=== PATIENT | male | born 2000 | race Caucasian/White ===

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

== ENCOUNTER 2018-12-24 11:04 | Emergency (ER) | payer MEDICAID ==
[2018-12-24 11:16] VITALS: BP 141/88
--- NOTE | 2018-12-24 12:14 | ED Physician Documentation ---
PD HPI BACK INJURY - Stated complaint Stated Complaint: SLIP AND FALL/LOWER BACK PX - History obtained from History obtained from: Patient - History of Present Illness Type of injury: Fall Timing - onset: Yesterday Timing - details: Abrupt onset Quality: Pain (lumbosacral area.), Aching. No: Tearing, Throbbing Worsened by: Moving (bending and twisting. he slipped on ice yesterday and landed firmly on lumbosacral area. N), Palpating Associated symptoms: Other (intermittent light headed feeling for month or more, with feeling well hydrated and no vomiting nor diarrhea. Denies headache.). No: Fever, Weakness, Numbness Contributing factors: No: Work related Similar symptoms before: No diagnosis, Has not had sx before Recently seen: Not recently seen Review of Systems Constitutional: denies: Fever Ears: reports: Reviewed and negative Nose: denies: Rhinorrhea / runny nose, Congestion Throat: denies: Sore throat Respiratory: denies: Cough GI: denies: Nausea, Vomiting, Diarrhea Neurologic: denies: Focal weakness, Near syncope PD PAST MEDICAL HISTORY - Past Medical History Cardiovascular: None Respiratory: None Neuro: Other (congenital hydrocephalus, with prior shunts. Most recent surgical shunt/intervention being over 5-6 yearsa go.) Endocrine/Autoimmune: None - Past Surgical History Past Surgical History: Yes Neuro: DIRECT SERVICE PROFESSIONAL shunt - Present Medications Home Medications: Ambulatory Orders Medication Instructions Recorded Confirmed Naproxen 500 mg PO BID #20 tablet 12/24/18 Tramadol HCl 50 mg PO Q6H PRN #15 tablet 12/24/18 - Allergies Allergies/Adverse Reactions: Allergies Allergy/AdvReac Type Severity Reaction Status Date / Time No Known Drug Allergies Allergy Verified 12/24/18 11:16 - Social History Does the pt smoke?: No Smoking Status: Never smoker Does the pt drink ETOH?: No Does the pt have substance abuse?: No - Immunizations Immunizations are current?: Yes PD ED PE NORMAL - Vitals Vital signs reviewed: Yes - General General: Alert and oriented X 3, No acute distress, Well developed/nourished - HEENT HEENT: Ears normal, Pharynx benign - Neck Neck: Supple, no meningeal sign, No adenopathy - Cardiac Cardiac: RRR, No murmur - Respiratory Respiratory: Clear bilaterally - Abdomen Abdomen: Soft, Non tender - Derm Derm: Normal color, Warm and dry Results - Vitals Vitals: Vital Signs - 24 hr 12/24/18 11:14 Temperature 36.7 C Heart Rate 70 Respiratory 18 Rate Blood Pressure 141/88 H O2 Saturation 97 Oxygen O2 Source Room air - Rads (name of study) lumbar xray Radiology: Prelim report reviewed (no fractures. good alignment.), EMP read contemporaneously head CT Radiology: Prelim report reviewed (no acute process seen.) PD MEDICAL DECISION MAKING - ED course Complexity details: considered differential, d/w patient Departure - Departure Disposition: 01 Home, Self Care Clinical Impression: Contusion of lower back and pelvis, initial encounter, Light-headed feeling Fall due to ice or snow Qualifiers: Encounter type: initial encounter Qualified Code(s): W00.9XXA - Unspecified fall due to ice and snow, initial encounter Condition: Stable Record reviewed to determine appropriate education?: Yes Instructions: ED Contusion Sacrum Coccyx Follow-Up: Itzel Weaver ARNP [Primary Care Provider] - Prescriptions: Naproxen 500 mg PO BID #20 tablet Tramadol HCl 50 mg PO Q6H PRN #15 tablet PRN Reason: Pain Comments: Your x-rays of the lower back and tailbone area did not show any obvious fractures. Presume bruised and sprained and will be sore for several days or so. You can use anti-inflammatories such as naproxen twice daily. Add pain m edicine like Tylenol or tramadol to it if needed. Your head CT showed obvious congenital abnormalities in the prior shunts but no signs of current enlarged ventricles or other acute abnormalities. Follow-up with your primary care if not improved over the next several days to week or so. Discharge Date/Time: 12/24/18 14:59
[2018-12-24] MEDS ORDERED: IBUPROFEN 600 MG TABLET PO STA (12:33)
[2018-12-24] MEDS ORDERED: METHOCARBAMOL 500 MG TABLET PO STA (12:33)
[2018-12-24] MEDS ORDERED: ACETAMINOPHEN 325 MG TABLET PO STA (12:33)
--- NOTE | 2018-12-24 14:15 | XRAY Report ---
Reason: fall on ice; lumbar/coccygeal pain Procedure Date: 12/24/2018 Accession Number: [id number] / [id number] Procedure: XR - Lumbar Spine 2 View CPT Code: FULL RESULT: EXAM: LUMBOSACRAL SPINE RADIOGRAPHY EXAM DATE: 12/24/2018 01:30 PM. CLINICAL HISTORY: Fall on ice; lumbar/coccygeal pain. COMPARISONS: None. TECHNIQUE: 3 views. FINDINGS: Alignment: Normal. No spondylolisthesis or scoliosis. Bones: Five [id number] lumbar vertebral bodies are present. No fractures or bone lesions. Disks: Normal. Disk heights are maintained. Facets: No degenerative changes. Sacroiliac Joints: Unremarkable. Soft Tissues: No bowel obstruction. Catheters project over the mid right abdomen and upper pelvis. IMPRESSION: 1. No acute lumbar spine abnormalities are identified. [facility]
--- NOTE | 2018-12-24 14:38 | CT Report ---
Reason: lightheaded, recent fall Procedure Date: 12/24/2018 Accession Number: [id number] / [id number] Procedure: CT - Head W/O CPT Code: FULL RESULT: EXAM: CT HEAD EXAM DATE: 12/24/2018 02:26 PM. CLINICAL HISTORY: Lightheaded, recent fall. COMPARISON: None. TECHNIQUE: Multiaxial CT images were obtained from the foramen magnum to the vertex. Reformats: Sagittal and coronal. IV contrast: None. In accordance with CT protocol optimization, one or more of the following dose reduction techniques were utilized for this exam: automated exposure control, adjustment of mA and/or KV based on patient size, or use of iterative reconstructive technique. FINDINGS: Parenchyma: There are findings of cerebral dysplasia with absence of midline falx, and presumed developmental deformity of corpus callosum and basal ganglia. There is a posterior right-sided ventriculostomy catheter which traverses through the location of the posterior right lateral ventricle. No intraparenchymal acute hemorrhage. Extraaxial Spaces: There is a subdural drainage catheter in the posterior left subdural space. There are asymmetric posterior left dural calcifications. Ventricles: The frontal horns of the ventricles appear slitlike and decompressed. No ventriculomegaly. There is dysplasia of the ventricles. Sinuses and Orbits: Imaged paranasal sinuses, orbits, and mastoids show no significant abnormality. Bones: No acute fracture Other: None. IMPRESSION: 1. Negative for intracranial acute hemorrhage. No definite acute process by CT. 2. 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 3. Posterior right ventriculostomy catheter. Posterior left subdural drainage catheter. [facility]
== END 2018-12-24 14:59 | disposition home or self-care (01) ==
LOC: ED 11:04
DX: S30.0XXA Contusion of lower back and pelvis, initial encounter (principal); W00.0XXA Fall on same level due to ice and snow, initial encounter; R42 Dizziness and giddiness; Q03.9 Congenital hydrocephalus, unspecified
CPT/HCPCS: 70450; 72100; 99283; A9270

== ENCOUNTER 2019-09-01 08:00 | Outpatient (CLI) | payer MEDICAID | END 2019-09-01 23:59 | disposition home or self-care (01) | LOC: LAB.N 08:00 | PROVIDERS: ATTEND Nurse Practitioner Psychiatric/Mental Health | DX: Z53.9 Procedure and treatment not carried out, unspecified reason (principal) | CPT/HCPCS: 36415; 80050; 82306; 82607 ==

== ENCOUNTER 2019-09-01 08:00 | Outpatient (CLI) | payer MEDICAID ==
[2019-09-01 18:47] LABS: BASOPHILS # (AUTO) 0.1 10^3/uL (0.0-0.1); BASOPHILS % (AUTO) 0.7 %; EOSINOPHILS # (AUTO) 0.2 10^3/uL (0.0-0.7); EOSINOPHILS % (AUTO) 2.4 %; LYMPHOCYTES # (AUTO) 3.2 10^3/uL (1.5-3.5); LYMPHOCYTES % (AUTO) 31.3 %; MEAN CORPUSCULAR HEMOGLOBIN 28.7 pg (27.0-31.0); MEAN CORPUSCULAR HGB CONC 32.1 g/dL (32.0-36.0); MEAN CORPUSCULAR VOLUME 89.7 fL (80.0-94.0); MONOCYTES % (AUTO) 9.4 %; NEUTROPHILS # (AUTO) 5.7 10^3/uL (1.5-6.6); NEUTROPHILS % (AUTO) 55.8 %; PLT - PLATELET COUNT 312 10^3/uL (130-450); RED BLOOD COUNT 5.22 10^6/uL (4.70-6.10); RED CELL DISTRIBUTION WIDTH 12.5 % (12.0-15.0); WHITE BLOOD COUNT 10.1 x10^3/uL (4.8-10.8)
[2019-09-01 18:56] LABS: ALBUMIN 4.4 g/dL (3.2-5.5); ALBUMIN/GLOBULIN RATIO 1.2 (1.0-2.2); BILIRUBIN,TOTAL 0.5 mg/dL (0.2-1.0); CALCIUM 9.2 mg/dL (8.5-10.3); CREATININE 0.9 mg/dL (0.6-1.2); TOTAL PROTEIN 8.2 g/dL (6.7-8.2)
== END 2019-09-01 23:59 | disposition home or self-care (01) ==
LOC: LAB.WCP 08:00
PROVIDERS: ATTEND Nurse Practitioner Psychiatric/Mental Health
DX: F90.2 Attention-deficit hyperactivity disorder, combined type (principal)
CPT/HCPCS: 36415; 80050; 82306; 82607

== ENCOUNTER 2019-09-11 10:11 | Outpatient (CLI) | payer MEDICAID ==
[2019-09-11 11:53] VITALS: BP 110/72
--- NOTE | 2019-09-11 11:53 | SLEEP CARE CONSULTATION ---
Information from patient questionnaire entered by Shawanda Enrique. I have reviewed and concur with the information entered by Shawanda Enrique. This document represents the service I personally performed and the decisions made by me, Bianca Grey RN, MSN, [employer] MANAGER. History of Present Illness Reason for Visit: New patient Chief Complaint: reports: Insomnia, Unrefreshed sleep, Snoring, Excessive daytime sleepiness, Observed pauses in breathing, Fatigue, Frequent awakenings at night, Other Duration of Symptoms: as long as I can remember Usual bedtime: try to sleep at around 8-10pm Time it takes to fall asleep: 3-5 hours - ear noise that sounds like tinnitus can interfere to sleep. Snores at night: Yes Observed to quit breathing while asleep: Yes (occasionally) Sleeps alone due to snoring: No Number of times waking at night: 2 Reasons for waking at night: reports: Gasping for air, Other (rapid heart rate) Toss, Turn, or Twitch while sleeping: Yes Recalls having dreams: Yes (sometimes) Usually gets out of bed at: 7-9am Feels refreshed in the morning: No Morning headache: Yes (sometimes when less sleep - resolves in a couple of hours) Sleepy or fatigued during the day: Yes Ever fallen asleep while driving: No Takes day naps: No Dreams during day naps: No (no naps) Prior sleep studies: No - Parasomnia Symptoms Ever been unable to move upon waking from sleep: No Walks in sleep: No Talks in sleep: Yes (rare) Ever acted out dreams in sleep: No Ever felt weak in the knees when startled or emotional: No Bothered by creepy, crawly, restless sensations in legs: No Problems with memory or concentration: Yes Subjective Initial [place] Sleepiness Scale score: 8 Past Medical History Past Medical History: reports: Claustrophobia, Anxiety, Depression, Mood disor jay, Attention deficit (medications pending determined by insurance coverage). 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 Patient is Single and lives in [place]. Have you smoked in the past 12 months: Yes Cigarettes per day (20/pack): 1 (more than 1 pack a year) Years of smokin Quit date: last March 2019 Smoking Pack Years: 0 Alcohol use: No Caffeine use: Yes Caffeine amount and frequency: 1-2 cups a week Family History Family history of sleep disordered breathing: No Allergies and Home Medications Known drug allergies: No Home medication list reviewed: Yes Allergy and home medication list: multiple vitamins vitamin D 2000 units - waiting for stronger prescription Naproxen 500mg bid prn Review of Systems Weight gain over past 5 years: 100 Weight loss over past 5 years: 20 Cardiovascular: reports: palpitations (2 times a month when waking from sleep), have to sleep sitting up (proped up with pillows to decrease snoring) Neurological: reports: headaches, disorientation (seen by neurologist for zoning out and grogginess when awakes ), other (shunts for hydrocehalus - in process of further evaluation) Psychiatric: reports: Attention Deficit Hyperactivity (evaluated and medications pending insurance ), anxiety, depression (denies thoughts of hurting self or others ), mood disorder (not diagnosed but feels rebolledo at times), claustrophobia (in crowds) Ear/Nose/Throat: reports: nasal congestion (intermittent ), sinus problems (intermittent), dry mouth/throat (when he awakens - uses humidifier ), tonsillectomy Endocrine: reports: sluggishness, too hot or cold, increased appetite (binge eating - under evaluation) Musculoskeletal: reports: back pain (chronic - under evaluation ) Physical Exam Blood Pressure: 110/72 Heart Rate: 59 O2 Saturation: 98 Height: 5 ft 9 in Weight: 283 lb Body Mass Index: 41.8 BMI Classification: Obesity Class 3 Neck circumference: 17.5 HEENT: No craniofacial malformation Nostrils: patent to airflow Turbinates: swollen Septum: midline Mouth and throat: narrow oropharynx Soft palate: long Hard palate: normal Uvula: normal Uvula visualization: 0% Mallampati Class IV Tongue: normal in size Tonsils: absent bilaterally Chin and jaw: Overjet (slight - had braces to correct as child) Neck: normal w/o lymphadenopathy or thyromegaly Heart: regular rate and rhythm Lungs: clear bilaterally Abdomen: soft, other: (large) Extremities: no edema or clubbing Impression and Plan 1. Suspected Obstructive Sleep Apnea-Hypopnea Syndrome, as suggested by a history of loud and irregular snoring, observed cessation of breath while asleep, gasping or choking in sleep, morning headache, frequent awakening during the night, unrefreshed sleep, cognitive impairment, fatigue and excessive daytime sleepiness. Narrow oropharynx and obesity are common predisposing factors for obstructive sleep apnea-hypopnea syndrome. He also has awakened to gasping and rapid heart beat which could be a symptoms of sleep apnea. In addition, some symptoms of depression / attention deficit can overlap with sleep apnea. I recommend proceeding to polysomnography to confirm the diagnosis and to assess severity. If the patient has significant sleep disordered breathing, a manual CPAP titration study will also be performed to find the optimal treatment pressure. I informed the patient of what the sleep studies involve and after some discussion, obtained agreement to proceed. To have better sleep efficiency at sleep study he is advised to wake early that morning so able to sleep earlier. The pathophysiology of obstructive sleep apnea-hypopnea syndrome was discussed with the patient and health risks of cardiovascular and cerebrovascular disease if not treated. AAS brochure for obstructive sleep apnea-hypopnea syndrome given and reviewed. Risks of drowsy driving discussed in detail and patient advised to avoid long distance driving and to nail puller at the first sign of drowsiness. Patient agreed to plan. 2. Insomnia, that appears to be related to irregular sleep schedule, spending too much time in bed and tinnitus as well as possible sleep apnea. Until he is able to get his sleep study completed, he is advised to keep a consistent sleep time and not to spend more than 7-9 hours in bed. I explained how his wake time and spending too much time in bed by going to bed too early affects his ability to go to sleep as well as his sleep efficiency. For his tinnitus, he is advised to follow up with his PCP for a referral to an ENT for further evaluation. * Schedule polysomnography +- manual CPAP titration study * Avoid long distance driving or driving when feeling sleepy. * Avoid alcohol, sedative and muscle relaxant around bedtime. * Attempt to lose weight. * Review instructions provided by trained office staff on how to prepare for the sleep study. * Follow up with PCP for further evaluation of tinnitus and referral to ENT. * Return for follow-up after sleep study completed. I spent 100% of this 50 minute visit face to face with the patient with greater than 50% of this was spent time counseling the patient and coordination of care about possible sleep apnea and insomnia etiology and evaluation and treatment.
== END 2019-09-11 10:12 | disposition home or self-care (01) ==
LOC: SC 10:11
PROVIDERS: ATTEND Nurse Practitioner Family
DX: G47.10 Hypersomnia, unspecified (principal); R06.81 Apnea, not elsewhere classified; R51 Headache; G47.8 Other sleep disorders; R41.89 Other symptoms and signs involving cognitive functions and awareness; R53.83 Other fatigue; R06.83 Snoring; G47.00 Insomnia, unspecified; E66.9 Obesity, unspecified; Z68.41 Body mass index [BMI] 40.0-44.9, adult
CPT/HCPCS: 99204; 99212

== ENCOUNTER 2019-10-16 20:44 | Outpatient (CLI) | payer MEDICAID | END 2019-10-16 20:45 | disposition home or self-care (01) | LOC: SC 20:44 | PROVIDERS: ATTEND Internal Medicine Pulmonary Disease | DX: G47.33 Obstructive sleep apnea (adult) (pediatric) (principal); E66.01 Morbid (severe) obesity due to excess calories; Z68.41 Body mass index [BMI] 40.0-44.9, adult | CPT/HCPCS: 95810 ==

== ENCOUNTER 2019-11-10 15:13 | Outpatient (CLI) | payer MEDICAID ==
--- NOTE | 2019-11-10 16:09 | SLEEP CARE CONSULTATION ---
Information from patient questionnaire entered by Shawanda Enrique. I have reviewed and concur with the information entered by Shawanda Enrique. This document represents the service I personally performed and the decisions made by me, Bianca Grey, RN, MSN, [employer]. History of Present Illness Initial [place] Sleepiness Scale score: 8 Current [place] Sleepiness Scale score: 6 Additional HPI information: LUCINDA MATIAS returns for follow up and results of the recently performed polysomnography. I explained the pathophysiology behind obstructive sleep apnea. We then spent quite a bit of time discussing different treatment options. For mild obstructive sleep apnea, surgery and oral appliance are alternatives to nasal CPAP therapy but in moderate or severe cases, nasal CPAP is the most effective and reliable treatment. I reviewed the impact of weight changes on sleep apnea and strongly recommended losing weight. After some discussion, the patient opted to go with the nasal CPAP therapy. Nasal autoCPAP set at [id number] will be ordered with rationale explained. A manual titration study will be ordered if unable to find optimal pressure with office adjustments. I explained how CPAP machine works with sample devices [employer] Dream[employer] and [employer] [id number] and what to expect when using the machine. Using CPAP every night in order to get used to it was emphasized. Patient advised to put CPAP mask on before getting into bed so as not to fall asleep without CPAP. To assist acclimation to CPAP use, it could also be used for a short time during day while reading or watching TV. The patient was instructed to call the CPAP supplier to discuss any mechanical problem that may occur. If the mask given is uncomfortable or is difficult to keep on through the night even with adjustment, contact the CPAP supplier as many will replace with another mask style if notified before 30 days. If snoring or perceives is not getting enough air or too much air from the machine, notify this office. [facility] patient education PAP tips and Non Pap treatment pamphlets reviewed and given to patient. Res Med device preferred by patient. Patient counseled not drink alcohol less than 4 hours before bedtime as it can increase snoring and apnea. Patient was cautioned about risks of drowsy driving until sleepiness symptoms resolve. Patient denies drowsy driving as using transit right now. [facility] patient education on snoring and sleep apnea given and reviewed. Sleep Study - Results Polysomnography/Home Sleep Study results: The quality of the study is good. The patient had slightly reduced sleep efficiency due to two prolonged awakenings after the sleep onset.. Despite moderate sleep fragmentation, the sleep architecture was normal. Respiratory monitoring showed mild obstructive sleep apnea-hypopnea (AHI = 14.2) associated with frequent arousals, oxyhemoglobin desaturation and mild hypoxia (stuart oxygen saturation of 85%). The respiratory events occurred independently of sleep stage and body position (supine AHI = 13.6; non-supine = 15.63). Snore was light to moderate in intensity. There was no significant periodic leg movement of sleep. Cardiac rhythm was normal sinus rhythm without significant arrhythmia. No abnormal behavior (parasomnia) observed during the night. Allergies and Home Medications Known drug allergies: No Home medication list reviewed: Yes (started Adderall bid , no other changes in medications) Review of Systems Review of systems same as previous: Yes Physical Exam Blood Pressure: 130/80 Heart Rate: 110 O2 Saturation: 97 Height: 5 ft 9 in Weight: 287 lb Body Mass Index: 42.3 BMI Classification: Obesity Class 3 Impression and Plan 1. Obstructive Sleep Apnea-Hypopnea Syndrome, mild, with lowest oxygen saturation of 85%. Obviously this is the cause of the patients symptoms of unr efreshed sleep, and excessive daytime sleepiness. Positive pressure therapy could benefit his attention deficit. As mentioned above, the patient will be started on nasal autoCPAP therapy with pressure set at 4-15 cmH2O. Res Med Device preferred by patient. A manual titration study will be completed if unable to find optimal treatment pressure with office adjustments. Compliance guidelines also reviewed. A copy of compliance guidelines will be given for reference at check out. * Nasal auto CPAP therapy, pressure at 4-15 cm H2O. * Attempt to lose weight. * Avoid alcohol consumption near bedtime. * The patient is again cautioned about driving until sleepiness completely resolves. * Return one month after CPAP obtained. I will assess response to therapy and compliance at that time. Time Spent with Patient (minutes): 30 I spent 100% of this visit face to face with the patient with greater than 50% of this was spent time counseling the patient and coordination of care.
[2019-11-10 16:10] VITALS: BP 130/80
== END 2019-11-10 15:14 | disposition home or self-care (01) ==
LOC: SC 15:13
PROVIDERS: ATTEND Nurse Practitioner Family
DX: G47.33 Obstructive sleep apnea (adult) (pediatric) (principal)
CPT/HCPCS: 99212; 99214

== ENCOUNTER 2020-03-02 17:02 | Outpatient (CLI) | payer MEDICAID ==
--- NOTE | 2020-03-02 16:30 | SLEEP CARE CONSULTATION ---
Information from patient questionnaire entered by Louise Gregg. I have reviewed and concur with the information entered by Louise Gregg. This document represents the service I personally performed and the decisions made by me, Kristopher Ceja MD, [facility]. History of Present Illness Service Date and Time: 03/02/2020 1520 Previous diagnosis: Mild, Obstructive Sleep Apnea-Hypopnea Syndrome AHI: 14.2 Reason for follow up: first compliance Equipment type: CPAP Equipment obtained from: [facility] additional information: To minimize the risk of COVID-19 exposure, the patient has requested and consented to this video telemedicine visit. The patient also agrees to having his insurance billed. HPI: Mr. Barton was called today to follow up on the nasal CPAP therapy. He was diagnosed to have mild obstructive sleep apnea-hypopnea syndrome. The patient wears nasal pillows. He reports using the device nightly and all through the night. The compliance report shows usage in 49 nights out of the past 60 nights, averaging 7.4 hours a night. The > 4 hour compliance rate for the past 60 days is 77%. He complained of no particular problem with the device such as soreness on the face, dry nose, epistaxis, nasal congestion or headache. He thinks that the pressure is comfortable. On the CPAP therapy he notices improvement in his sleep quality, and that he wakes up feeling fresher in the morning and more awake/alert during the day. The average residual AHI is 7.1; and average time in large leak per day is 0. The 90th percentile pressure is 14.4 cmH2O. CPAP Compliance Data - Data Reviewed with Patient Average duration of nightly device use: 7h 22m Compliance rate %: 77 (for 60 days) Current pressure setting (cmH2O): 4-15 Subjective Initial [place] Sleepiness Scale score: 8 Allergies and Home Medications Drug allergies reviewed: Yes Home medication list reviewed: Yes Review of Systems Review of systems same as previous: Yes Physical Exam Height: 5 ft 9 in Impression and Plan IMPRESSION: 1. Obstructive Sleep Apnea-Hypopnea Syndrome, mild (14.2), with the patient doing well on nasal CPAP therapy. He has good compliance and significant clinical improvement. The current pressure appears slightly ineffective but comfortable. His mask fits well. Overall, he is very satisfied with treatment and plans to continue with it long-term. Because the residual AHI is slightly high, I will raise the starting pressure a little. PLAN: 1. Change autoCPAP setting to 8 - 15 cmH2O. 2. Try to lose weight 3. Return in one year for follow up or earlier if there is any problem with the treatment. Visit Type: Telehealth Video Video Type: [facility] Patient Location: Home Location of Provider: Home Patient agrees and consents to this telehealth visit type: Yes Time Spent with Patient (minutes): 15 Provider Statement: I spent 100% of the Telehealth Video Call with the patient with greater than 50% spent counseling the patient and coordination of care.
== END 2020-03-02 17:03 | disposition home or self-care (01) ==
LOC: SC 17:02
PROVIDERS: ATTEND Internal Medicine Pulmonary Disease
DX: G47.33 Obstructive sleep apnea (adult) (pediatric) (principal)

== ENCOUNTER 2020-11-26 10:05 | Outpatient (CLI) | payer MEDICAID ==
--- NOTE | 2020-11-26 11:00 | SLEEP CARE CONSULTATION ---
Information from patient questionnaire entered by Shawanda Enrique. I have reviewed and concur with the information entered by Shawanda Enrique. This document represents the service I personally performed and the decisions made by , Elizabeth Sue ARNP. History of Present Illness Service Date and Time: 11/26/2020 1005 Previous diagnosis: Mild, Obstructive Sleep Apnea-Hypopnea Syndrome AHI: 14.2 (in 2019) Reason for follow up: other (9 month) Equipment type: CPAP Equipment obtained from: [employer] (their automated system difficult to use; has not been able to get supplies for last 6 months) Mask style: Nasal pillows Backup mask available: No (will need to keep old mask when gets replacements) [facility]: Yes [facility] Type of Sleep Study: Polysomnography HPI additional information: LUCINDA MATIAS was diagnosed to have mild, AHI 14.2, obstructive sleep apnea- hypopnea syndrome and returned today for CPAP therapy nine month follow-up. CPAP Compliance Data - Data Reviewed with Patient Average duration of nightly device use: 7 hours 26 minutes Compliance rate %: 60 (report 01/10-03/12/20, no used since end date) Current pressure setting (cmH2O): 8-15 Average residual AHI: 6.8 Central apnea: 0.0 Obstructive apnea: 6.2 Subjective Missed days of use due to: reports: other (tubing cleanliness not good and not able to get supplies) Patient concerns: reports: condensation in mask/hose (in tubing, small amount), nasal congestion, dry mouth, nose, throat, epistaxis (1-2 times, overall no), other (headache). denies: aerophagia, mask discomfort, air blowing in eyes, mask leak noise Observed to snore while using device: No (unsure) Current pressure setting perceived as: too high On therapy, patient: reports: sleeping better, awakening more refreshed, being more awake and alert during the day, more rested overall, drowsiness while driving Initial [place] Sleepiness Scale score: 8 (in 2019) Current [place] Sleepiness Scale score: 14 Allergies and Home Medications Drug allergies reviewed: Yes (NKDA) Home medication list reviewed: Yes (Lisinopril) Review of Systems Review of systems same as previous: No (hypertension diagnosis) Physical Exam Heart Rate: 83 O2 Saturation: 97 Height: 5 ft 9 in Weight: 330 lb Body Mass Index: 48.7 BMI Classification: Morbidly Obese Impression and Plan 1. Obstructive Sleep Apnea-Hypopnea Syndrome, mild, with poor treatment compliance and fair apnea control with an mildly elevated residual AHI. On CPAP therapy, the patient states he had better sleep quality and was more rested overall after he got used to using the machine. The patients pressure will be continued at autoCPAP 8-15 cmH20 since he has been off the CPAP and needs to re- establish use. Patient advised to contact me if pressure change is uncomfortable so that it can be adjusted. Goals for apnea control discussed. He has had some nasal congestion and mouth/throat dryness when using the machine. I reviewed with patient that oral dryness and nasal congestion can be reduced by adjusting humidity setting higher or heated hose lower or by adjusting both settings. Verbal instructions given on how to change humidity and heated hose settings with rationale explaining why to change. He states that he has had lots of difficulty with the hose and the machine, he tells me that he did not know how he was supposed to clean the machine and hose. He has no complaints about the mask fit. He also has not been able to get supplies from the DME supplier. He gets frustrated easily when trying to use their automated phone line for ordering and has not been able to obtain supplies for 6 months. He was advised to clean hose, headgear and water reservoir with warm soapy water according to manufacturers recommendations. The mask daily and the other equipment weekly. He can hand the hose over the shower curtain or towel richard in bathroom to dry. He voiced understanding. I will have him work with our discharge merchandise adjustment clerk to notify his DME supplier and instruct him how to obtain supplies. He is to follow up here in 1-2 months to determine compliance and response to therapy. Patient's apnea severity and rationale for treatment to reduce apnea, improve sleep quality and reduce cardiovascular and cerebrovascular events was reviewed. I also reviewed the benefit of consistent device use of CPAP for depression, anxiety and mood disorders. * Continue autoCPAP pressure at 8-15 cmH2O * Obtain supplies and restart use of machine * Notify me if snoring with mask or feeling that the pressure is too much or too little * Attempt to lose weight * Call this office if any problems using CPAP * Return for follow up in 1-2 months, or sooner if concerns arise Counseling Topics: Spare mask, Weight loss health impact Visit Type: In Office Time Spent with Patient (minutes): 29 Provider Statement: I spent 100% of the Face to Face Visit with the patient with greater than 50% spent counseling the patient and coordination of care.
== END 2020-11-26 10:06 | disposition home or self-care (01) ==
LOC: SC 10:05
PROVIDERS: ATTEND Nurse Practitioner Family
DX: G47.33 Obstructive sleep apnea (adult) (pediatric) (principal); E66.9 Obesity, unspecified; Z68.42 Body mass index [BMI] 45.0-49.9, adult
CPT/HCPCS: 99212; 99213

== ENCOUNTER 2021-01-28 10:11 | Outpatient (CLI) | payer MEDICAID ==
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
== END 2021-01-28 10:12 | disposition home or self-care (01) ==
LOC: SC 10:11
PROVIDERS: ATTEND Nurse Practitioner Family
DX: G47.33 Obstructive sleep apnea (adult) (pediatric) (principal); E66.01 Morbid (severe) obesity due to excess calories; Z68.42 Body mass index [BMI] 45.0-49.9, adult
CPT/HCPCS: 99212; 99213

== ENCOUNTER 2021-02-16 | Outpatient (CLI) | payer MEDICAID | END 2021-02-16 09:54 | disposition EMS.NT | DX: F41.9 Anxiety disorder, unspecified (principal) ==

== ENCOUNTER 2021-03-11 09:51 | Outpatient (CLI) | payer MEDICAID ==
--- NOTE | 2021-03-11 10:25 | SLEEP CARE CONSULTATION ---
Information from patient questionnaire entered by Shawanda Enrique. I have reviewed and concur with the information entered by Shawanda Enrique. This document represents the service I personally performed and the decisions made by , Elizabeth Sue ARNP. History of Present Illness Service Date and Time: 03/11/2021 0951 Previous diagnosis: Mild, Obstructive Sleep Apnea-Hypopnea Syndrome AHI: 14.2 (in 2019) Reason for follow up: one month (with pressure change) Equipment type: CPAP Equipment obtained from: [employer] (getting supplies as needed) Mask style: Nasal Backup mask available: Yes (old mask) Last cushion change: 3 weeks Prior sleep [facility]: Yes [facility] Type of Sleep Study: Polysomnography HPI additional information: LUCINDA MATIAS was diagnosed to have mild, AHI 14.2, obstructive sleep apnea- hypopnea syndrome and returned today with partner for CPAP therapy one month pressure change follow-up. CPAP Compliance Data - Data Reviewed with Patient Average duration of nightly device use: 9 hr 22 min Compliance rate %: 97 Current pressure setting (cmH2O): 11-14 (median 12.2, avg 13.6, max 13.9) Humidity settin Average residual AHI: 1.4 Subjective Patient concerns: reports: aerophagia (little bit, "rupal there but not really"), air blowing in eyes, mask leak noise, nasal congestion, other (headache). denies: mask discomfort, condensation in mask/hose, dry mouth, nose, throat, epistaxis Observed to snore while using device: No Current pressure setting perceived as: too high On therapy, patient: reports: sleeping better, awakening more refreshed, being more awake and alert during the day, more rested overall. denies: drowsiness while driving Initial [place] Sleepiness Scale score: 8 (in 2019) Current [place] Sleepiness Scale score: 11 Allergies and Home Medications Home medication list reviewed: Yes (no new meds) Review of Systems Review of systems same as previous: Yes (no changes) Physical Exam Heart Rate: 61 O2 Saturation: 97 Height: 5 ft 9 in Weight: 331 lb Body Mass Index: 48.9 BMI Classification: Morbidly Obese Impression and Plan 1. Obstructive Sleep Apnea-Hypopnea Syndrome, mild, with good treatment compliance and good apnea control. On CPAP therapy, the patient has better sleep quality and is more rested overall. He has not yet been able to try the full face mask because they have not sent the new supplies yet. He still has some mask leaks that make the mask uncomfortable. He has very minor aerophagia and feels like the pressure is too high and will wake him up during the night. To reduce symptoms of aerophagia, the CPAP pressure will be reduced to 12-13 cmH2O. Patient advised to contact me if this does not reduce symptoms or if pressure change uncomfortable. He has also had some nasal congestion, especially in the morning, making it difficult to breathe through his nose. He has been adjusting the humidity and heated hose setting with some improvement. I advised him to use saline nasal spray prior to CPAP to clear nasal secretions and wash off any nasal allergens to facilitate nasal breathing. Patient's apnea severity and rationale for treatment to reduce apnea, improve sleep quality and reduce cardiovascular and cerebrovascular events was reviewed. I also reviewed the benefit of consistent device use of CPAP for depression, anxiety and mood disorder. * Changeauto CPAP pressure to 12-13 cmH2O * Notify me if snoring with mask or feeling that the pressure is too much or too little * Attempt to lose weight * Call this office if any problems using CPAP * Return for follow up in 3 months, or sooner if concerns arise Counseling Topics: Spare mask, Weight loss health impact Visit Type: In Office Time Spent with Patient (minutes): 24 Provider Statement: I spent 100% of the Face to Face Visit with the patient with greater than 50% spent counseling the patient and coordination of care.
== END 2021-03-11 09:52 | disposition home or self-care (01) ==
LOC: SC 09:51
PROVIDERS: ATTEND Nurse Practitioner Family
DX: G47.33 Obstructive sleep apnea (adult) (pediatric) (principal); E66.01 Morbid (severe) obesity due to excess calories; Z68.42 Body mass index [BMI] 45.0-49.9, adult
CPT/HCPCS: 99212; 99213

== ENCOUNTER 2022-02-03 11:08 | Outpatient (CLI) | payer MEDICAID ==
[2022-02-03 12:04] VITALS: BP 144/92
--- NOTE | 2022-02-03 12:04 | SLEEP CARE CONSULTATION ---
Information from patient questionnaire entered by Primitivo Carmona MA. I have reviewed and concur with the information entered by Primitivo Carmona MA. This document represents the service I personally performed and the decisions made by , Elizabeth Sue ARNP. History of Present Illness Service Date and Time: 02/03/2022 1108 Previous diagnosis: Mild, Obstructive Sleep Apnea-Hypopnea Syndrome AHI: 14.2 (in 2019) Reason for follow up: annual, other (11 MONTH F/U, ) Equipment type: CPAP Equipment obtained from: [employer] (getting supplies as needed) Mask style: Nasal Backup mask available: Yes (old mask) Last cushion change: 1-2 months Prior sleep studies: Yes Year and Where: 2018 - [facility] Type of Sleep Study: Polysomnography HPI additional information: LUCINDA MATIAS was diagnosed to have mild, AHI 14.2, obstructive sleep apnea- hypopnea syndrome and returned today for CPAP therapy 11 month follow-up. Sleep Study - Results Type of Sleep Study: Polysomnography Prior sleep studies: Yes [facility] and Where[facility] CP[facility] Compliance Data - Data Reviewed with Patient Average duration of nightly device use: 9 HOURS 11 MINUTES Compliance rate %: 100 Current pressure setting (cmH2O): 12-13 Average residual AHI: 0.7 Central apnea: .0 Obstructive apnea: .5 Average large leak: 28.7 Subjective Missed days of use due to: reports: mask issues (fluid getting in mask) Patient concerns: reports: mask discomfort, condensation in mask/hose, nasal congestion, dry mouth, nose, throat, other (headache). denies: aerophagia, air blowing in eyes, mask leak noise, epistaxis Observed to snore while using device: No Current pressure setting perceived as: too low On therapy, patient: reports: sleeping better, awakening more refreshed, being more awake and alert during the day, more rested overall. denies: drowsiness while driving Initial Nabb Sleepiness Scale score: 8 (in 2019) Current Nabb Sleepiness Scale score: 7 (01/2022) Allergies and Home Medications Home medication list reviewed: Yes (no changes) Allergy and home medication list: Allergies No Known Drug Allergies Allergy (Verified 12/24/18 11:16) Review of Systems Review of systems same as previous: Yes (no changes) Physical Exam Vital signs obtained and entered by: Vahid CARMONA CMA AAMA Blood Pressure: 144/92 (MANUAL LEFT, PULSE 70, RESP 18.) Heart Rate: 68 O2 Saturation: 97 (N95) Height: 5 ft 9 in Weight: 320 lb (WITH CLOTHES) Weight change since last visit: 13 lb loss Body Mass Index: 47.2 BMI Classification: Morbidly Obese Impression and Plan 1. Obstructive Sleep Apnea-Hypopnea Syndrome, mild, with excellent treatment compliance and excellent apnea control. On CPAP therapy, the patient has better sleep quality and is more rested overall. Patient has felt like he needs a little more air at the end of the night. He would like an increase if possible. I reviewed his therapy report and well adjust his pressure to 12 -15 cm H2O for patient comfort. He has been having issues with getting condensation in his mask causing mask discomfort. He has also had some oral and nasal dryness. His nose can become congested feeling during the night. He is using a [employer] nasal cushion mask. Upon questioning he states that is machine is sitting elevated on side of bed. I advised that he place the machine on the floor and to adjust his humidifier if needed to improve dryness. Nasal congestion can also be reduced with increasing the CPAP humidity. The heated hose can be adjusted higher if condensation with higher humidity setting. Saline nasal spray that can be obtained OTC may be used prior to CPAP to clear nasal secretions and wash off any nasal allergens to facilitate nasal breathing as well. He voiced understanding. He also may be oral venting which can lead to oral dryness. I advised trying a full face mask and showed him a [employer] full face hybrid mask which he liked. I will write for a mask refitting for full face mask so he can try it. Patient's apnea severity and rationale for treatment to reduce apnea, improve sleep quality and reduce cardiovascular and cerebrovascular events was reviewed. I also reviewed the benefit of consistent device use of CPAP for depression, anxiety and mood disorder. 2. Obesity, unspecified. Patient has lost weight (13 pounds). Currently patients BMI is 47.2. Obesity increases the risk of apnea, CPAP pressure requirements and overall health risks especially cardiovascular and diabetes. Thus patient is advised to continue to try to lose weight. Weight loss can be done with reducing portion size, reducing refined foods and balancing content with vegetables, fruit and whole grain foods. In addition, patient encouraged to get regular exercise. The patient's CPAP pressure range should accommodate some weight loss. Symptoms to report for additional pressure adjustment discussed. * Mask refitting for [employer] full face hybrid mask * Patient to put CPAP machine lower than head/on floor * Change auto CPAP pressure to 12-15 cmH2O * Notify me if snoring with mask or feeling that the pressure is too much or too little * Continue to try to lose weight * Call this office if any problems using CPAP * Return for follow up in 1 year, or sooner if concerns arise Counseling Topics: Spare mask, Weight loss health impact Visit Type: In Office Time Spent with Patient (minutes): 29 Provider Statement: I spent 100% of the Face to Face Visit with the patient with greater than 50% spent counseling the patient and coordination of care.
== END 2022-02-03 11:09 | disposition home or self-care (01) ==
LOC: SC 11:08
PROVIDERS: ATTEND Nurse Practitioner Family
DX: G47.33 Obstructive sleep apnea (adult) (pediatric) (principal); E66.01 Morbid (severe) obesity due to excess calories; Z68.42 Body mass index [BMI] 45.0-49.9, adult
CPT/HCPCS: 99212; 99213

== ENCOUNTER 2022-06-06 11:36 | Outpatient (CLI) | payer MEDICAID ==
--- NOTE | 2022-06-06 16:41 | XRAY Report ---
PROCEDURE: Thoracic Spine 2 View INDICATIONS: NECK,BACK LOW BACK PAIN TECHNIQUE: 2 views of the thoracic spine were acquired. COMPARISON: X-ray cervical and lumbar spine 06/06/2022 FINDINGS: Bones: No fractures or dislocations. No suspicious bony lesions. 12 pairs of ribs are noted, and a ppear intact where visualized. Soft tissues: No paravertebral stripe thickening. Heart is enlarged. IMPRESSION: Unremarkable exam of the thoracic spine. Reviewed by: Emili Bueno MD on 06/06/2022 4:40 PM PDT Approved by: Emili Bueno MD on 06/06/2022 4:40 PM PDT Station ID: [id number]
--- NOTE | 2022-06-06 16:41 | XRAY Report ---
PROCEDURE: Cervical Spine 2 View INDICATIONS: NECK,BACK LOW BACK PAIN TECHNIQUE: 2 view(s) of the cervical spine were acquired. COMPARISON: X-ray thoracic spine 06/06/2022 FINDINGS: Bones: No fractures or dislocations to the C7-T1 level. The lateral masses of C1 appear intact on t he odontoid view. No suspicious bony lesions. There is overall appearance of cervical straightening . Soft tissues: No prevertebral soft tissue swelling. IMPRESSION: Cervical straightening, overall nonspecific. Reviewed by: Emili Bueno MD on 06/06/2022 4:40 PM PDT Approved by: Emili Bueno MD on 06/06/2022 4:40 PM PDT Station ID: [id number]
--- NOTE | 2022-06-06 16:42 | XRAY Report ---
PROCEDURE: Lumbar Spine 2 View INDICATIONS: NECK,BACK LOW BACK PAIN TECHNIQUE: 2 views of the lumbar spine were acquired. COMPARISON: X-ray thoracic spine 06/06/2022 FINDINGS: Bones: 5 [id number] vertebrae are present. There is normal bony alignment. No vertebral body compression fractures. No suspicious bony lesions. There is moderate to severe disc space narrowing at L5-S1. Soft tissues: Overlying bowel gas pattern is normal. No suspicious soft tissue calcifications. IMPRESSION: Early degenerative changes most notable at L5-S1. Reviewed by: Emili Bueno MD on 06/06/2022 4:41 PM PDT Approved by: Emili Bueno MD on 06/06/2022 4:41 PM PDT Station ID: [id number]
== END 2022-06-06 11:37 | disposition home or self-care (01) ==
LOC: DI 11:36
PROVIDERS: ATTEND Nurse Practitioner
DX: M54.2 Cervicalgia (principal); R51.9 Headache, unspecified; M54.6 Pain in thoracic spine; M47.817 Spondylosis without myelopathy or radiculopathy, lumbosacral region

== ENCOUNTER 2023-01-25 10:15 | Outpatient (CLI) | payer MEDICAID ==
[2023-01-25 11:49] LABS: URIC ACID 6.8 mg/dL (2.6-7.2)
[2023-01-25 11:51] LABS: CRP - C-REACTIVE PROTEIN < 1.0 mg/dL (0-1.0)
[2023-01-25 12:27] LABS: RHEUMATOID FACTOR NEGATIVE (Negative)
== END 2023-01-25 23:59 | disposition home or self-care (01) ==
LOC: LAB 10:15
PROVIDERS: ATTEND Family Medicine
DX: M13.842 Other specified arthritis, left hand (principal)
CPT/HCPCS: 36415; 84550; 85651; 86140; 86430

== ENCOUNTER 2023-09-11 10:23 | Outpatient (CLI) | payer MEDICAID ==
--- NOTE | 2023-09-11 16:56 | XRAY Report ---
PROCEDURE: Tib/Fib LT INDICATIONS: CONTUSION OF LEFT LOWER LEG,INITIAL ENCOUNTER TECHNIQUE: 2 views of the tibia and fibula were acquired. COMPARISON: None. FINDINGS: Bones: No fractures or dislocations. No suspicious bony lesions. Soft tissues: No suspicious soft tissue calcifications or masses. IMPRESSION: No acute fracture. No osseous lesion. If symptoms and/or clinical suspicion for pathology continue, f urther assessment with repeat plain films, or advanced imaging (e.g., CT, MRI, or bone scan) is recom mended for further assessment. Reviewed by: Chris Cote MD on 09/11/2023 4:55 PM PDT Approved by: Chris Cote MD on 09/11/2023 4:55 PM PDT Station ID: [id number]
== END 2023-09-11 10:24 | disposition home or self-care (01) ==
LOC: DI 10:23
PROVIDERS: ATTEND Family Medicine
DX: S80.12XA Contusion of left lower leg, initial encounter (principal)